=== PATIENT | female | born 1990 | race African-American/Black ===

== ENCOUNTER 2016-11-30 10:56 | Emergency (ER) | payer SELFPAY ==
[~2016-11-30] VITALS: Ht 170.2 cm; Wt 72.7 kg
[2016-11-30] MEDS ORDERED: KETOROLAC 30 MG/ML VIAL (J1885) IV ONE (11:30)
[2016-11-30 11:58] LABS: BASO % 0.4 % (0.0-1.0); EOS % 0.2 % (0.0-3.0); IMMATURE GRANULOCYTE % 0.2 % (0-0); LYMPH # 1.8 10^3/uL (1.5-6.5); LYMPH % 33.3 % (24.0-44.0); MEAN CORPUSCULAR HEMOGLOBIN 28.7 pg (27.0-33.0); MEAN CORPUSCULAR HGB CONC 31.9 g/dl (32.0-36.5); MEAN CORPUSCULAR VOLUME 90.1 fl (80.0-96.0); MONO # 0.4 10^3/uL (0.0-0.8); MONO % 7.1 % (0.0-5.0); NEUTROPHILS # 3.3 10^3/uL (1.8-7.7); NEUTROPHILS % 58.8 % (36.0-66.0); PLATELET COUNT, AUTOMATED 235 10^3/uL (150-450); RED CELL DISTRIBUTION WIDTH 13.1 % (11.5-14.5); WHITE BLOOD COUNT 5.5 10^3/uL (4.0-10.0)
[2016-11-30 11:59] LABS: CONTROL LINE UCG INT CTR LINE PRESENT
[2016-11-30 12:25] LABS: ALBUMIN 4.1 GM/DL (3.2-5.2); ALBUMIN/GLOBULIN RATIO 1.28 (1.00-1.93); ALKALINE PHOSPHATASE 58 U/L (45-117); ALT/SGPT 14 U/L (12-78); ANION GAP 4 MEQ/L (8-16); AST/SGOT 12 U/L (15-37); BILIRUBIN,DIRECT 0.2 MG/DL (0.0-0.2); BILIRUBIN,TOTAL 0.6 MG/DL (0.2-1.0); BLOOD UREA NITROGEN 9 MG/DL (7-18); CALCIUM LEVEL 8.7 MG/DL (8.5-10.1); CARBON DIOXIDE LEVEL 29 MEQ/L (21-32); CHLORIDE LEVEL 106 MEQ/L (98-107); CREATININE FOR GFR 0.83 MG/DL (0.55-1.02); GLOMERULAR FILTRATION RATE > 60.0 (>60); GLUCOSE, FASTING 90 MG/DL (70-105); POTASSIUM SERUM 3.9 MEQ/L (3.5-5.1); SODIUM LEVEL 139 MEQ/L (136-145); TOTAL PROTEIN 7.3 GM/DL (6.4-8.2)
--- NOTE | 2016-11-30 12:49 | REP ---
PELVIC ULTRASOUND: Real-time sonographic evaluation of the pelvis is performed utilizing transabdominal and endovaginal technique. The urinary bladder is collapsed. The uterus measures 8.1 x 3.3 x 4.8 cm. Endometrial thickness is 8 mm. There is no endometrial fluid collection. Ovaries are normal in size and echotexture, right ovary measuring 3.7 x 2.0 x 2.7 cm and the left ovary 2.9 x 1.3 x 3.1 cm. A complex dominant follicle in the right ovary measures 1.5 x 1.3 x 1.7 cm. Blood flow is seen in each ovary with duplex Doppler evaluation, with no torsion, RI right ovary 0.57 and left ovary 0.52. Trace free fluid is seen IMPRESSION: Trace free fluid in the pelvis. Otherwise negative exam. No mass or torsion. Signed by Camron Morillo MD 11/30/2016 05:05 P
[2016-11-30] MEDS ORDERED: FLAG500T PO (13:59)
[2016-11-30] MEDS ORDERED: METR0.7533 PV (14:00)
[2016-11-30 14:12] VITALS: BP 137/69
== END 2016-11-30 14:14 | disposition home or self-care (01) ==
LOC: M ED 10:56
DX: N76.0 Acute vaginitis (principal); Z87.891 Personal history of nicotine dependence
CPT/HCPCS: 76830; 76856; 80048; 80076; 81001; 84703; 85025; 87210; 87491; 87591; 93976; 96374; 99284; J1885

== ENCOUNTER → 2017-11-24 | Outpatient (REF) | payer OTHER | LOC: M SFHCLERA 17:07 | DX: R10.2 Pelvic and perineal pain (principal) ==

== ENCOUNTER 2017-12-04 00:10 | Emergency (ER) | payer OTHER ==
[2017-12-04] MEDS: diphenhydrAMINE 25 MG CAP PO (00:53)
== END 2017-12-04 01:01 | disposition home or self-care (01) ==
LOC: M ED 00:10
DX: B86 Scabies (principal)
CPT/HCPCS: 99282